=== PATIENT | male | born 1945 | race Caucasian/White ===

== ENCOUNTER → 2024-10-02 13:15 | Outpatient (REF) | payer MEDICARE, OTHER, SELFPAY | LOC: HWCARD 13:15 | PROVIDERS: ATTENDING PHYSICIAN Specialist; FAMILY PHYSICIAN Family Medicine | DX: R94.31 Abnormal electrocardiogram [ECG] [EKG] (principal) | CPT/HCPCS: 93005 ==

== ENCOUNTER → 2024-10-17 09:30 | Outpatient (REF) | payer MEDICARE, OTHER, SELFPAY | LOC: RAD 09:30 | PROVIDERS: ATTENDING PHYSICIAN Family Medicine | DX: Z87.891 Personal history of nicotine dependence (principal) | CPT/HCPCS: 76770 ==

== ENCOUNTER → 2024-11-10 16:34 | Outpatient (REF) | payer MEDICARE, OTHER, SELFPAY | LOC: PAVMRI 16:34 | PROVIDERS: ATTENDING PHYSICIAN Specialist; FAMILY PHYSICIAN Family Medicine | DX: G93.41 Metabolic encephalopathy (principal) | CPT/HCPCS: 70551 ==